=== PATIENT | male | born 1965 | race Two or more races ===

== ENCOUNTER 2020-11-11 19:20 | Emergency (ER) | payer SELFPAY ==
[~2020-11-11] VITALS: Ht 182.9 cm; Wt 68.2 kg
--- NOTE | 2020-11-11 19:56 | PHYS DOC ---
General Adult EDM: Chief Complaint: SKIN PROBLEM HPI: HPI: Patient is a 55 year old male who presents with left second toe pain that occurred 10 days ago after a tire fell on his foot when he was at work. He went to his doctor today who told him to come to [place] because they could not do anything for him. He has a history of diabetes and he takes insulin at his last sugar was 50 this morning. He denies any other associated symptoms. He rates his pain as a 6 out of 10 in severity. There are no further complaints. [] Review of Systems: Review of Systems: Constitutional: Denies fever or chills Eyes: Denies redness or eye pain HENT: Denies nasal congestion or sore throat Respiratory: Denies cough or shortness of breath Cardiovascular: Denies chest pain or palpitations GI: Denies abdominal pain, nausea, or vomiting : Denies dysuria or hematuria Musculoskeletal: Denies back pain or joint pain Integument: Denies rash or skin lesions Neurologic: Denies headache, focal weakness or sensory changes Complete systems were reviewed and found to be within normal limits, except as documented in this note. Heart Score: Risk Factors: Risk Factors: DM, Current or recent (<one month) smoker, HTN, HLP, family history of CAD, obesity. Risk Scores: Score 0 - 3: 2.5% MACE over next 6 weeks - Discharge Home Score 4 - 6: 20.3% MACE over next 6 weeks - Admit for Clinical Observation Score 7 - 10: 72.7% MACE over next 6 weeks - Early Invasive Strategies Current Medications: Current Medications Medications (Trade) Dose Ordered Sig/[facility] Start Time Stop Time Status Last Admin Dose Admin Clindamycin Phosphate 50 ml @ 100 mls/hr 1X ONCE 11/11/20 20:00 11/11/20 20:29 Allergies: Allergies: Allergies Coded Allergies Type Severity Reaction Last Updated Verified Penicillins Allergy Intermediate unknown 11/11/20 Yes Physical Exam: PE: Constitutional: Well developed, well nourished, no acute distress, non-toxic appearance HENT: Normocephalic, atraumatic Eyes: PERRL, EOMI, conjunctiva normal, no discharge Neck: Normal range of motion, no tenderness, supple Lungs & Thorax: No respiratory distress, equal chest rise and fall Abdomen: Soft, no tenderness Skin: Warm, dry, no erythema, ecchymosis to the distal tip second left toe beneath the nail, no open wound mildly tender to palpation, no deformity Back: No tenderness, no CVA tenderness Extremities: No tenderness, ROM intact, no edema Neurologic: Alert and oriented X 3, normal motor function, normal sensory function, no focal deficits noted Psychologic: Affect normal, judgment normal [] EKG: EKG: [] Radiology/Procedures: Radiology/Procedures: PROCEDURE: FOOT RIGHT 3V Study: XR FOOT_RIGHT 3 VIEWS Indication: Diabetic ulceration at the second toe. Comparison: None. Findings: Ulcerative change with soft tissue gas at the tip of the second toe. No destructive osseous change/acute erosion of the adjacent distal phalanx or throughout the rest of the foot. Flexion deformities of the lesser toes. No severe joint space narrowing. Vascular calcifications. Impression: Ulceration with soft tissue gas at the tip of the second ray without radiographic evidence for osteomyelitis of the adjacent distal phalanx. Electronically signed by: CARMEL CONNELL MD (11/11/2020 8:59 PM) [facility] DICTATED and SIGNED BY: CARMEL CONNELL MD[] Course & Med Decision Making: Course & Med Decision Making Pertinent Labs and Imaging studies reviewed. (See chart for details) [] Because of patient's history of diabetes labs were obtained to rule out any infectious etiology. Alie Disclaimer: Alie Disclaimer: This electronic medical record was generated, in whole or in part, using a voice recognition dictation system. Splinting Splinting : Location: Right foot Pre-Made Type: Post-op shoe Pre-Proc Neuro Vasc Exam: normal Post-Proc Neuro Vasc Exam: normal, unchanged from pre-exam Departure Departure Impression: Primary Impression: Contusion of toe of right foot Qualified Codes: S90.221A - Contusion of right lesser toe(s) with damage to nail, initial encounter Disposition: 01 DC HOME SELF CARE/HOMELESS Condition: STABLE Referrals: NO PCP (PCP) VARGHESE ALMONTE DPSadiq Patient Instructions: Cast Shoe, Crush Injury, Fingers or Toes, [id number] Additional Instructions: Do not soak your wound. You may shower. Clean wound daily with soap and water. Change dressing 2 times daily. Use over the counter antibiotic ointment with each dressing change. Scripts Tramadol Hcl (TRAMADOL HCL) 50 Mg Tablet 50 MG PO Q6HRS PRN for PAIN, #14 TAB Prov: JULIANNA JOAQUIN DO 11/11/20 JULIANNA JOAQUIN DO Nov 11, 2020 19:56
[2020-11-11] MEDS ORDERED: CLINDAMYCIN 600MG PREMIX 50 ML IV ONE (20:00)
[2020-11-11 20:01] LABS: BASO # 0.1 x10^3/uL (0.0-0.2); BASO % 1 % (0-3); EOS # 0.1 x10^3/uL (0.0-0.7); EOS % 2 % (0-3); HEMATOCRIT 42.6 % (39.0-53.0); HEMOGLOBIN 14.2 g/dL (13.0-17.5); LYMPH # 2.1 x10^3/uL (1.0-4.8); LYMPH % 26 % (24-48); MEAN CORPUSCULAR HEMOGLOBIN 28 pg (25-35); MEAN CORPUSCULAR HGB CONC 34 g/dL (31-37); MEAN CORPUSCULAR VOLUME 83 fL (79-100); MONO # 0.7 x10^3/uL (0.0-1.1); MONO % 8 % (0-9); NEUT # 5.2 x10^3/uL (1.8-7.7); NEUT % 63 % (31-73); PLATELET COUNT 201 x10^3/uL (140-400); RED BLOOD COUNT 5.13 x10^6/uL (4.30-5.70); RED CELL DISTRIBUTION WIDTH 14.5 % (11.5-14.5); WHITE BLOOD COUNT 8.1 x10^3/uL (4.0-11.0)
[2020-11-11 20:11] LABS: CALCIUM 8.9 mg/dL (8.5-10.1); CREATININE 0.9 mg/dL (0.7-1.3); GFR 87.3; POTASSIUM 4.2 mmol/L (3.5-5.1)
[2020-11-11] MEDS ORDERED: KETOROLAC 15 MG/ML VIAL. IVP ONE (20:15)
[2020-11-11 20:17] LABS: ALBUMIN 3.8 g/dL (3.4-5.0); ALBUMIN/GLOBULIN RATIO 1.2 (1.0-1.7); C-REACTIVE PROTEIN 2.6 mg/L (0-3.3); MAGNESIUM 2.4 mg/dL (1.8-2.4); TOTAL BILIRUBIN 0.2 mg/dL (0.2-1.0); TOTAL PROTEIN 7.1 g/dL (6.4-8.2)
--- NOTE | 2020-11-11 21:01 | RAD ---
Study: XR FOOT_RIGHT 3 VIEWS Indication: Diabetic ulceration at the second toe. Comparison: None. Findings: Ulcerative change with soft tissue gas at the tip of the second toe. No destructive osseous change/ac cj erosion of the adjacent distal phalanx or throughout the rest of the foot. Flexion deformities of the lesser toes. No severe joint space narrowing. Vascular calcifications. Impression: Ulceration with soft tissue gas at the tip of the second ray without radiographic evidence for osteom yelitis of the adjacent distal phalanx. Electronically signed by: CARMEL CONNELL MD (11/11/2020 8:59 PM) [facility]
[2020-11-11] MEDS ORDERED: TRAM50TA PO (21:50)
[2020-11-11 21:58] VITALS: BP 161/74
[2020-11-11] MEDS ORDERED: NEOMY/BACITR/POLYMYXIN OINT PACKET. TP ONE (22:00)
== END 2020-11-11 22:00 | disposition home or self-care (01) ==
LOC: ER 19:20
DX: S90.221A Contusion of right lesser toe(s) with damage to nail, initial encounter (principal); E11.9 Type 2 diabetes mellitus without complications; Z88.0 Allergy status to penicillin; W18.39XA Other fall on same level, initial encounter; Y93.89 Activity, other specified; Y92.89 Other specified places as the place of occurrence of the external cause; Y99.0 Civilian activity done for income or pay
CPT/HCPCS: 36415; 73630; 80053; 83605; 83735; 85025; 86140; 87040; 96374; 99285; J1885